=== PATIENT | female | born 1985 | race American Indian/Alaskan Native ===

== ENCOUNTER 2020-01-28 08:55 | Emergency (ER) | payer MEDICAID, OTHER ==
[2020-01-28] MEDS ORDERED: ONDANSETRON 4 MG/2 ML INJ IV ONE (12:17)
[2020-01-28] MEDS ORDERED: MORPHINE 4 MG/1 ML INJ IV ONE (12:17)
[2020-01-28] MEDS ORDERED: AMPICILLIN/SULBACTA 3GM/100ML 3 GM/100 ML BAG IV ONE (12:18)
[2020-01-28] MEDS ORDERED: DIPHtheria,PERTUSSIS(ACELL),TETANUS VACCINE/PF 0.5 ML VIAL IM ONE (12:18)
[2020-01-28] MEDS ORDERED: LIDOCAINE (1%) 10 MG/1 ML VIAL 20 ML MDV INFILTRATI ONE (12:19)
[2020-01-28 12:21] VITALS: BP 103/63
--- NOTE | 2020-01-28 12:51 | XRay Report ---
RIGHT FOOT 2 VIEWS INDICATION / CLINICAL INFORMATION: Status post right foot animal bite. COMPARISON: None available. FINDINGS: BONES and JOINT(S): No acute fracture or subluxation. No significant arthritis. SOFT TISSUES: No significant abnormality. ADDITIONAL FINDINGS: None. IMPRESSION: 1. No acute findings. Signer Name: Antelmo Noonan MD Signed: 01/28/2020 12:46 PM Workstation Name: [id number]
[2020-01-28] MEDS ORDERED: RABIES IMMUNE GLOBULIN P/F 300 UNIT/ML INJ 5 ML IM ONE (13:28)
[2020-01-28] MEDS ORDERED: RABIES VACCINE, HUMAN DIPLOID/PF 2.5 UNIT/ML VIAL IM ONE (13:28)
--- NOTE | 2020-01-28 15:23 | Emergency Department Report ---
ED Animal Bite HPI - General Chief Complaint: Animal Bite Stated Complaint: dog bite Time Seen by Provider: 01/28/20 13:28 Source: patient Mode of arrival: Ambulatory Limitations: No Limitations - History of Present Illness Initial Comments: The patient presents to the emergency department with a chief complaint of a dog bite to the right foot. Patient states she was bit by a neighbor's dog but is not aware of the dorsum position status. Patient denies any other injury. -: Sudden Location: other Right: Foot Animal: dog Animal Control Notified: Yes Description: immunizations unknown, appeared well Mechanism: bite Pain Description: sharp Severity scale (0 -10): 8 Context: unprovoked Associated Symptoms: none Treatments Prior to Arrival: wound dressing(s) - Related Data Patient Tetanus UTD: No Previous Rx's Medication Instructions Recorded Last Taken Type Vit-Fe Fumar-FA [ 1 each PO QDAY #90 tablet 09/22/14 12/13/15 Rx Vitamin] Acetaminophen [Acetaminophen TAB] 650 mg PO Q4H PRN #30 tablet 01/26/15 Unknown Rx Ferrous Sulfate [Feosol 325 MG tab] 325 mg PO BID #60 tablet 01/26/15 Unknown Rx HYDROcodone/APAP 5-325 [[place] 2 each PO Q6H PRN #30 tablet 01/26/15 Unknown Rx 5-325 mg TAB] Ibuprofen [Motrin 600 MG tab] 600 mg PO Q6HR #30 tablet 01/26/15 Unknown Rx Vit-Fe Fumar-FA [ 1 each PO QDAY #30 tablet 01/26/15 12/13/15 Rx Vitamin] Amoxicillin/Potassium Clav 1 each PO BID #14 tablet 01/28/20 Unknown Rx [Augmentin 875-125 Tablet] HYDROcodone/APAP 5-325 [[place] 1 each PO Q6HR PRN #12 tablet 01/28/20 Unknown Rx 5/325] Ibuprofen [Motrin] 800 mg PO Q8HR PRN #30 tablet 01/28/20 Unknown Rx Allergies Allergy/AdvReac Type Severity Reaction Status Date / Time No Known Allergies Allergy Verified 01/24/15 14:48 ED Review of Systems ROS: Stated complaint: dog bite Other details as noted in HPI Comment: All other systems reviewed and negative Constitutional: denies: chills, fever Eyes: denies: eye pain, eye discharge, vision change ENT: denies: ear pain, throat pain Respiratory: denies: cough, shortness of breath, wheezing Cardiovascular: denies: chest pain, palpitations Endocrine: no symptoms reported Gastrointestinal: denies: abdominal pain, nausea, diarrhea Genitourinary: denies: urgency, dysuria, discharge Musculoskeletal: denies: back pain, joint swelling, arthralgia Skin: denies: rash, lesions Neurological: denies: headache, weakness, paresthesias Psychiatric: denies: anxiety, depression Hematological/Lymphatic: denies: easy bleeding, easy bruising ED Past Medical Hx - Past Medical History Hx Hypertension: No Hx Congestive Heart Failure: No Hx Diabetes: No Hx Deep Vein Thrombosis: No Hx Renal Disease: No Hx Sickle Cell Disease: No Hx Seizures: No Hx Asthma: Yes (last attack 2months ago) Hx COPD: No Hx HIV: No - Surgical History Past Surgical History?: No - Social History Smoking Status: Never Smoker Substance Use Type: None - Medications Home Medications: Home Medications Medication Instructions Recorded Confirmed Last Taken Type Vit-Fe Fumar-FA [ 1 each PO QDAY #90 tablet 09/22/14 12/14/15 12/13/15 Rx Vitamin] Acetaminophen [Acetaminophen TAB] 650 mg PO Q4H PRN #30 tablet 01/26/15 12/14/15 Unknown Rx Ferrous Sulfate [Feosol 325 MG tab] 325 mg PO BID #60 tablet 01/26/15 12/14/15 Unknown Rx HYDROcodone/APAP 5-325 [[place] 2 each PO Q6H PRN #30 tablet 01/26/15 12/14/15 Unknown Rx 5-325 mg TAB] Ibuprofen [Motrin 600 MG tab] 600 mg PO Q6HR #30 tablet 01/26/15 12/14/15 Unknown Rx Vit-Fe Fumar-FA [ 1 each PO QDAY #30 tablet 01/26/15 12/14/15 12/13/15 Rx Vitamin] Amoxicillin/Potassium Clav 1 each PO BID #14 tablet 01/28/20 Unknown Rx [Augmentin 875-125 Tablet] HYDROcodone/APAP 5-325 [[place] 1 each PO Q6HR PRN #12 tablet 20 Unknown Rx 5/325] Ibuprofen [Motrin] 800 mg PO Q8HR PRN #30 tablet 01/28/20 Unknown Rx ED Physical Exam - General Limitations: No Limitations General appearance: alert, in no apparent distress - Head Head exam: Present: atraumatic, normocephalic - Eye Eye exam: Present: normal appearance, PERRL, EOMI - ENT ENT exam: Present: mucous membranes moist - Neck Neck exam: Present: normal inspection - Respiratory Respiratory exam: Present: normal lung sounds bilaterally. Absent: respiratory distress - Cardiovascular Cardiovascular Exam: Present: regular rate, normal rhythm. Absent: systolic murmur, diastolic murmur, rubs, gallop - GI/Abdominal GI/Abdominal exam: Present: soft, normal bowel sounds - Extremities Exam Extremities exam: Present: normal inspection - Back Exam Back exam: Present: normal inspection - Neurological Exam Neurological exam: Present: alert, oriented X3, CN II-XII intact. Absent: motor sensory deficit - Psychiatric Psychiatric exam: Present: normal affect, normal mood - Skin Skin exam: Present: warm, dry, normal color, other (Patient has a skin avulsion with underlying tissue injury to the right foot is lateral aspect just proximal to the fifth and fourth toe). Absent: rash ED Course Vital Signs 01/28/20 01/28/20 01/28/20 09:00 11:19 12:07 Temperature 98.8 F Pulse Rate 101 H 92 H Respiratory 18 20 Rate Blood Pressure 103/78 103/63 Blood Pressure 105/62 [Left] O2 Sat by Pulse 97 100 Oximetry - Reevaluation(s) Reevaluation #1: Medical decision making Patient received IV antibiotics and IV pain medicine Tetanus was updated Patient was given rabies immunoglobulin and vaccine We discussed in detail the issues with closing the wound especially concern for infection which the patient was very concerned about stating she would rather let the wound healed on his own because she is want to run the risk of having infection of her foot Patient is injury was thoroughly washed out with release a liter of saline Wound was cleaned and dressing applied Critical care attestation.: If time is entered above; I have spent that time in minutes in the direct care of this critically ill patient, excluding procedure time. ED Disposition Clinical Impression: Dog bite Disposition: - TO HOME OR SELFCARE Is pt being admited?: No Does the pt Need Aspirin: No Condition: Stable Instructions: Rabies Vaccine (Injection) Additional Instructions: return if worse Referrals: PRIMARY CAREMD [Primary Care Provider] - 3-5 Days MARLO CANO MD [Staff Physician] - 3-5 Days Time of Disposition: 15:22
== END 2020-01-28 15:34 | disposition home or self-care (01) ==
LOC: ED 08:55
DX: S91.351A Open bite, right foot, initial encounter (principal); J45.909 Unspecified asthma, uncomplicated; Z79.899 Other long term (current) drug therapy; W54.0XXA Bitten by dog, initial encounter; Y93.89 Activity, other specified; Y92.89 Other specified places as the place of occurrence of the external cause; Y99.8 Other external cause status
CPT/HCPCS: 73620; 90375; 90471; 90472; 90675; 90715; 96365; 96372; 96375; 99283; J0295; J2270; J2405

== ENCOUNTER 2020-10-28 02:18 | Emergency (ER) | payer OTHER ==
[2020-10-28] MEDS ORDERED: oxyCODONE /ACETAMINOPHEN 5-325MG TAB PO ONE (04:19)
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
[2020-10-28 06:07] LABS: HCG Qualitative,Urine Negative (Negative)
[2020-10-28] MEDS ORDERED: SODIUM CHLORIDE 0.9% 1000 ML 1,000 ML IV ONE (06:19)
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
[2020-10-28 07:03] LABS: Basophils # (Auto) 0.1 K/mm3 (0.0-0.1); Basophils % (Auto) 0.8 % (0.0-1.8); Eosinophils # (Auto) 0.2 K/mm3 (0.0-0.4); Eosinophils % (Auto) 2.6 % (0.0-4.3); Hematocrit 34.1 % (30.3-42.9); Hemoglobin 10.8 gm/dl (10.1-14.3); Lymphocytes # (Auto) 1.3 K/mm3 (1.2-5.4); Lymphocytes % (Auto) 15.6 % (13.4-35.0); Mean Corpuscular HGB Conc 32 % (30-34); Mean Corpuscular Volume 75 fl (79-97); Monocytes # (Auto) 0.7 K/mm3 (0.0-0.8); Platelet Count 198 K/mm3 (140-440); Red Blood Count 4.52 M/mm3 (3.65-5.03); Red Cell Distribution Width 15.8 % (13.2-15.2)
[2020-10-28 07:07] VITALS: BP 94/52
[2020-10-28 07:30] LABS: Alanine Aminotransferase 6 units/L (7-56); Albumin 3.5 g/dL (3.9-5); Blood Urea Nitrogen 10 mg/dL (7-17); Calcium 8.7 mg/dL (8.4-10.2); Hemolysis Index 1
[2020-10-28 07:32] LABS: BUN/Creatinine Ratio 17
== END 2020-10-28 06:45 | disposition other institution (70) ==
LOC: ED 02:18
DX: S06.2X0A Diffuse traumatic brain injury without loss of consciousness, initial encounter (principal); J45.909 Unspecified asthma, uncomplicated; Z79.1 Long term (current) use of non-steroidal anti-inflammatories (NSAID); Z79.2 Long term (current) use of antibiotics; Z79.899 Other long term (current) drug therapy; V49.59XA Passenger injured in collision with other motor vehicles in traffic accident, initial encounter; Y93.89 Activity, other specified; Y92.410 Unspecified street and highway as the place of occurrence of the external cause; Y99.8 Other external cause status
CPT/HCPCS: 36415; 70450; 71045; 72125; 72170; 80053; 81025; 85025; 99284; J7030